=== PATIENT | male | born 1965 ===

== ENCOUNTER 2016-11-09 21:09 | Emergency (ER) | payer SELFPAY ==
[2016-11-09 21:30] VITALS: BP 141/89; PULSE 75; RESP 16; TEMP 98.1; O2SAT 99
[2016-11-09] MEDS ORDERED: Sodium Chloride 0.9% 1,000 ML ONE (22:48)
[2016-11-09] MEDS ORDERED: cefTRIAXone IV 1 gm in Dextros 50 ML IVPB ONE (23:24)
[2016-11-10 08:47] LABS: BASO # 0.1 K/uL (0.0-0.2); BASO % 0.6 % (0.0-2.0); EOS # 0.2 K/uL (0.0-0.7); EOS % 2.1 % (0.0-4.0); HEMATOCRIT 43.2 % (35.0-51.0); LYMPH # 1.7 K/uL (1.0-4.3); LYMPH % 19.9 % (20.0-40.0); MEAN CELL VOLUME 86.2 fL (80.0-94.0); MEAN CORPUSCULAR HEMOGLOBIN 28.8 pg (27.0-31.0); MEAN CORPUSCULAR HGB CONC 33.4 g/dL (33.0-37.0); MEAN PLATELET VOLUME 8.3 fL (7.2-11.7); MONO # 0.8 K/uL (0.0-0.8); MONO % 9.4 % (0.0-10.0); NRBC % 0.1 % (0.0-2.0); RED CELL DISTRIBUTION WIDTH 13.9 % (11.5-14.5); WHITE BLOOD COUNT 8.8 K/uL (4.8-10.8)
[2016-11-10 09:15] LABS: BLOOD UREA NITROGEN 18 mg/dL (9-20); CALCIUM 8.7 mg/dl (8.6-10.4); CARBON DIOXIDE 30 mmol/L (22-30); CHLORIDE 95 mmol/L (98-107); GFR AFRICAN-AMERICAN > 60; GLUCOSE,RANDOM 102 mg/dL (75-110); POTASSIUM 4.1 mmol/L (3.6-5.2); SODIUM 137 mmol/L (132-148)
[2016-11-10 09:29] LABS: TOTAL PROTEIN 7.7 g/dL (6.3-8.3)
[2016-11-10 09:30] LABS: ALB/GLOB RATIO 1.3 (1.0-2.1); ALKALINE PHOSPHATASE 75 U/L (38-126); ALT/SGPT 57 U/L (21-72); AST/SGOT 61 U/L (17-59); BILIRUBIN,TOTAL 0.6 mg/dL (0.2-1.3)
--- NOTE | 2016-11-12 11:09 | C.PDOC ---
Chief Complaint (Nursing): Abnormal Skin Integrity Past Medical History Vital Signs: Last Vital Signs Temp 98.1 F 11/09/16 21:23 Pulse 75 11/09/16 21:23 Resp 16 11/09/16 21:23 BP 141/89 11/09/16 21:23 Pulse Ox 99 11/09/16 21:23 - Medical History PMH: HTN - Social History Hx Alcohol Use: Yes Hx Substance Use: No - Immunization History Hx Tetanus Toxoid Vaccination: No Hx Influenza Vaccination: No Hx Pneumococcal Vaccination: No ED Course And Treatment - Laboratory Results Result Diagrams: 11/09/16 22:30 11/09/16 22:30 O2 Sat by Pulse Oximetry: 99 Disposition - Disposition Disposition: HOME/ ROUTINE
== END 2016-11-10 00:15 | disposition home or self-care (01) ==
LOC: C.ER 21:09
DX: L03.311 Cellulitis of abdominal wall (principal); B95.62 Methicillin resistant Staphylococcus aureus infection as the cause of diseases classified elsewhere; I10 Essential (primary) hypertension

== ENCOUNTER 2017-01-03 18:57 | Emergency (ER) | payer SELFPAY ==
[2017-01-03 19:42] VITALS: RESP 20
[2017-01-03 21:00] LABS: BASO % 0.4 % (0.0-2.0); EOS # 0.1 K/uL (0.0-0.7); EOS % 1.8 % (0.0-4.0); HEMATOCRIT 41.6 % (35.0-51.0); LYMPH # 1.7 K/uL (1.0-4.3); LYMPH % 20.8 % (20.0-40.0); MEAN CELL VOLUME 85.5 fL (80.0-94.0); MEAN CORPUSCULAR HGB CONC 33.9 g/dL (33.0-37.0); MEAN PLATELET VOLUME 8.3 fL (7.2-11.7); MONO # 0.6 K/uL (0.0-0.8); MONO % 7.9 % (0.0-10.0); NRBC % 0.1 % (0.0-2.0); RED CELL DISTRIBUTION WIDTH 13.5 % (11.5-14.5)
[2017-01-03 21:07] LABS: CHLORIDE 97 mmol/L (98-107); SODIUM 135 mmol/L (132-148)
[2017-01-03 21:10] LABS: ALB/GLOB RATIO 1.1 (1.0-2.1); ALKALINE PHOSPHATASE 62 U/L (38-126); ALT/SGPT 31 U/L (21-72); AST/SGOT 41 U/L (17-59); BILIRUBIN,TOTAL 0.9 mg/dL (0.2-1.3); BLOOD UREA NITROGEN 17 mg/dL (9-20); CARBON DIOXIDE 28 mmol/L (22-30); GFR AFRICAN-AMERICAN > 60; GLUCOSE,RANDOM 107 mg/dL (75-110); TOTAL PROTEIN 7.4 g/dL (6.3-8.3)
[2017-01-03 21:11] LABS: CALCIUM 8.6 mg/dl (8.6-10.4)
--- NOTE | 2017-01-03 21:12 | C.PDOC ---
History Of Present Illness 51 y/o male presents with 2 lesions to abdominal wall there for 5-6 days, started on their own. pt has been taking amox one tab per day. denies any insect bites or initial injuries. wounds are draining on their own. no fever or chills. no hx diabetes. Time Seen by Provider: 01/03/17 20:08 Chief Complaint (Nursing): Abnormal Skin Integrity History Per: Patient History/Exam Limitations: no limitations Onset/Duration Of Symptoms: Days (5) Current Symptoms Are (Timing): Worse Location Of Injury: Right: Abdomen (2 abscesses to left and right abdominal wall ), Left: Abdomen Quality Of Symptoms: Draining Severity: Moderate Pain Scale Rating Of: 7 Recent travel outside of the [place]: No Past Medical History Reviewed: Historical Data, Nursing Documentation, Vital Signs Vital Signs: Last Vital Signs Temp 98 F 01/03/17 22:42 Pulse 60 01/03/17 22:42 Resp 20 01/03/17 22:42 BP 130/70 01/03/17 22:42 Pulse Ox 100 01/03/17 22:42 - Medical History PMH: HTN Surgical History: No Surg Hx Family History: States: Unknown Family Hx - Social History Hx Alcohol Use: Yes Hx Substance Use: No - Immunization History Hx Tetanus Toxoid Vaccination: No Hx Influenza Vaccination: No Hx Pneumococcal Vaccination: No Review Of Systems Constitutional: Negative for: Fever, Chills Gastrointestinal: Negative for: Nausea, Vomiting, Abdominal Pain Skin: Positive for: Lesions (abdominal wall left and right) Neurological: Negative for: Weakness, Numbness Physical Exam - Physical Exam Appears: Non-toxic, Other (uncomfortable) Skin: Normal Color, Dry, Other (draining tender abscess right lower abdominal wall, with induration surrounding with apprx 4-6 cm erythema and warmth around abscess. on left lower abdomen- 2 cm indurated draining area with mild surrounding erythema and warmth. both areas marked at furthest edges of erythema. ) Neck: Normal ROM Chest: Symmetrical, No Deformity, No Tenderness Cardiovascular: Rhythm Regular, No Murmur Respiratory: Normal Breath Sounds, No Accessory Muscle Use, No Rales, No Wheezing Gastrointestinal/Abdominal: Soft, No Tenderness, No Guarding, No Rebound, Other (abscesses- see skin for description) Neurological/Psych: Oriented x3, Normal Speech ED Course And Treatment - Laboratory Results Result Diagrams: 01/03/17 20:55 01/03/17 20:55 O2 Sat by Pulse Oximetry: 99 Medical Decision Making Medical Decision Making: areas of erythema marked. ;labs checked no elevated wbs; will d/c home on bactrim; pt to f/u in 2 days for wound check. 1125 am 01/05/17; notified by microbiology lab that pt's wound culture positive for MRSA: pt was discharged on Bactrim. Disposition Counseled Patient/Family Regarding: Studies Performed, Diagnosis, Need For Followup, Rx Given - Disposition Referrals: [facility] [Outside] [facility] [Outside] Disposition: HOME/ ROUTINE Disposition Time: 22:30 Condition: GOOD Additional Instructions: Aplique compresas calientes a los abscesos en el abdomen varias veces al da para ayudar con el drenaje. [place] los antibiticos e ibuprofen fela pescribed. Vuelva a ER en 2 bajwa para breanna revisin de herida, faye si el enrojecimiento en el abdomen se extiende ms all de la lnea trazada antes de eso o si usted desarrolla fiebre, vuelva a ED de inmediato Prescriptions: Ibuprofen [Motrin] 600 mg PO TID #30 tab Sulfamethoxazole/Trimethoprim [Bactrim DS 800 mg-160 mg] 1 tab PO BID #28 tab Instructions: Cellulitis (ED), Abscess (ED) Forms: Gen Discharge Inst Filipino Print Language: KAZAKH - Clinical Impression Clinical Impression: Abdominal wall abscess, Cellulitis, abdominal wall
[2017-01-03] MEDS ORDERED: Tmp-Smz 800 mg-160 mg DS Tab PO STA (22:19)
[2017-01-03] MEDS ORDERED: Tmp-Smz 800 mg-160 mg DS Tab ONE (22:26)
[2017-01-03 22:43] VITALS: BP 130/70; PULSE 60; TEMP 98
[2017-01-05 11:35] VITALS: O2SAT 99
== END 2017-01-03 22:43 | disposition home or self-care (01) ==
LOC: C.ER 18:57
DX: L02.211 Cutaneous abscess of abdominal wall (principal); L03.311 Cellulitis of abdominal wall
CPT/HCPCS: 80053; 85025; 87070; 87181; 96374; 99284; J1885